=== PATIENT | female | born 1970 | race Caucasian/White ===

== ENCOUNTER 2022-02-15 16:50 | Inpatient (IN) ==
[2022-02-15] MEDS ORDERED: Adenosine 3 MG/ML 2 ml VIAL (6 mg) ONE ×2 (17:15)
[2022-02-15] MEDS ORDERED: Diltiazem IV push/loading dose 5 MG/ML 5 ML vial (25 mg) ONE (17:16)
[2022-02-15 17:22] LABS: ABS Basophils 0.1 10^3/ul (0-0.2); ABS Eosinophils 0.1 10^3/ul (0-0.6); ABS Lymphocytes 2.6 10^3/ul (1.0-4.8); ABS Monocytes 0.7 10^3/ul (0-0.8); ABS Neutrophils 4.8 10^3/ul (1.5-7.7); Eosinophil % 1.8 %; Hematocrit 43 % (35-47); Hemoglobin 14.6 g/dL (12.0-16.0); Lymphocyte % 31.3 %; Mean Corpuscular HGB Conc 34 g/dL (31-36); Mean Corpuscular Hemoglobin 32 pg (27-31); Mean Corpuscular Volume 93 fL (80-97); Mean Platelet Volume 7.6 fL (7.4-10.4); Platelet Count 311 10^3/uL (150-450); Red Blood Count 4.65 10^6 /uL (3.70-4.87); Red Cell Distribution Width 13 % (10-15); White Blood Count 8.2 10^3/uL (3.5-10.8)
[2022-02-15] MEDS ORDERED: Diltiazem (ADVAN VIAL) 100 MG/100 ML ADDV.BAG IV ONE (17:25)
[2022-02-15] MEDS ORDERED: NS 0.9% 1000 ml BAG 1,000 ML IV ONE (17:27)
[2022-02-15] MEDS ORDERED: Diltiazem IV push/loading dose 5 MG/ML 5 ML vial (25 mg) IV SLOW PU ONE ×2 (17:27→17:51)
[2022-02-15 17:28] LABS: INR 1.08 (0.86-1.15)
[2022-02-15 17:45] LABS: High Sens Troponin Baseline 7 pg/mL (<15)
[2022-02-15] MEDS ORDERED: Adenosine 3 MG/ML 2 ml VIAL (6 mg) IV PUSH ONE ×2 (17:49→17:51)
[2022-02-15] MEDS ORDERED: Diltiazem (ADVAN VIAL) 100 MG/100 ML ADDV.BAG IV SCH (18:00)
[2022-02-15] MEDS ORDERED: Diltiazem IV BAG D5W Premix 125 MG/125 ML BAG IV SCH (18:00)
[2022-02-15 18:20] LABS: ALT 22 U/L (7-52); AST 21 U/L (13-39); Albumin 4.8 g/dL (3.2-5.2); Albumin/Globulin Ratio 1.9 (1-3); Alkaline Phosphatase 41 U/L (35-149); Anion Gap 9 mmol/L (2-11); Blood Urea Nitrogen 19 mg/dL (6-24); CO2 Carbon Dioxide 23 mmol/L (22-32); Calcium 9.9 mg/dL (8.6-10.3); Chloride 107 mmol/L (101-111); Globulin 2.5 g/dL (2-4); Glucose 89 mg/dL (70-100); Magnesium 2.1 mg/dL (1.9-2.7); Potassium 3.9 mmol/L (3.5-5.0); Sodium 139 mmol/L (135-145); Total Protein 7.3 g/dL (6.4-8.9)
[2022-02-15 18:26] LABS: HCG Pregnancy < 0.60 mIU/mL
[2022-02-15 18:35] LABS: TSH Ultra Thyroid Stim Horm 3.01 mcIU/mL (0.34-5.60)
[2022-02-15 18:40] LABS: High Sensitivity Troponin 1 Hr 7 pg/mL (<15)
[2022-02-15] MEDS ORDERED: VERAPAMIL 2.5 MG/ML 2 ML VIAL ** 5 mg/2 ml IV PUSH ONE (19:01)
[2022-02-15] MEDS ORDERED: Etomidate 40 mg/20 ml (2 MG/ML) 20 ml VIAL (40 mg) ONE (19:17)
[2022-02-15] MEDS ORDERED: Amiodarone 150 mg IVPREMIX 150 MG/100 ML BAG IV ONE ×2 (19:30→19:31)
[2022-02-15] MEDS ORDERED: Amiodarone 360 MG IVPREMIX 0 MG/0 ML BAG IV ONE (19:43)
[2022-02-15] MEDS: Amiodarone 360 MG IVPREMIX 360 MG/200 ML BAG IV ONE ×2 (19:46→19:58)
[2022-02-15] MEDS ORDERED: Amiodarone 360 MG IVPREMIX 360 MG/200 ML BAG IV ONE ×2 (19:51→19:52)
[2022-02-15] MEDS ORDERED: D5W IV SCH (20:00)
[2022-02-15] MEDS ORDERED: PROCAINAMIDE IV SCH (20:00)
[2022-02-15] MEDS ORDERED: Heparin DRIP 25,000 UNITS BAG 25,000 UNITS/500 ML BAG IV SCH (21:30)
[2022-02-15] MEDS ORDERED: Heparin 5000 UNITS/ML 1 mL VIAL IV SCH (22:00)
[2022-02-15] MEDS ORDERED: Iohexol 350 (CONTRAST) 500 ML MDV IV ONE (22:05)
[2022-02-16] MEDS: Amiodarone 360 MG IVPREMIX 360 MG/200 ML BAG IV ONE (01:19)
[2022-02-16] MEDS ORDERED: Amiodarone 360 MG IVPREMIX 360 MG/200 ML BAG IV SCH (04:45)
[2022-02-16 06:17] LABS: ABS Eosinophils 0.1 10^3/ul (0-0.6); ABS Lymphocytes 1.7 10^3/ul (1.0-4.8); ABS Monocytes 0.5 10^3/ul (0-0.8); ABS Neutrophils 4.1 10^3/ul (1.5-7.7); Eosinophil % 1.5 %; Hematocrit 37 % (35-47); Hemoglobin 12.7 g/dL (12.0-16.0); Lymphocyte % 27.1 %; Mean Corpuscular HGB Conc 34 g/dL (31-36); Mean Corpuscular Hemoglobin 32 pg (27-31); Mean Corpuscular Volume 92 fL (80-97); Mean Platelet Volume 7.6 fL (7.4-10.4); Platelet Count 263 10^3/uL (150-450); Red Blood Count 4.01 10^6 /uL (3.70-4.87); Red Cell Distribution Width 13 % (10-15); White Blood Count 6.4 10^3/uL (3.5-10.8)
[2022-02-16 06:57] LABS: Calcium 8.3 mg/dL (8.6-10.3); Potassium 3.5 mmol/L (3.5-5.0); eGFR CKD-EPI 104.4 (>60)
[2022-02-16] MEDS: KCL 20 MEQ/100 ML IVPREMIX 20 MEQ/100 ML BAG IV SCH ×2 (09:24→12:24)
[2022-02-16] MEDS ORDERED: Enoxaparin 60 MG/0.6 ML SYR SUBCUT SCH (11:00)
[2022-02-16] MEDS: Amiodarone 400 mg TAB PO SCH ×2 (11:11→20:29)
[2022-02-16] MEDS: Enoxaparin 60 MG/0.6 ML SYR SUBCUT SCH (21:07)
[2022-02-17 06:39] LABS: ABS Eosinophils 0.1 10^3/ul (0-0.6); ABS Lymphocytes 1.7 10^3/ul (1.0-4.8); ABS Monocytes 0.4 10^3/ul (0-0.8); ABS Neutrophils 3.4 10^3/ul (1.5-7.7); Eosinophil % 2.1 %; Hematocrit 39 % (35-47); Hemoglobin 13.3 g/dL (12.0-16.0); Lymphocyte % 29.3 %; Mean Corpuscular HGB Conc 34 g/dL (31-36); Mean Corpuscular Hemoglobin 32 pg (27-31); Mean Corpuscular Volume 93 fL (80-97); Mean Platelet Volume 7.6 fL (7.4-10.4); Nucleated Red Blood Cells % 0.1; Platelet Count 256 10^3/uL (150-450); Red Blood Count 4.15 10^6 /uL (3.70-4.87); Red Cell Distribution Width 13 % (10-15); White Blood Count 5.7 10^3/uL (3.5-10.8)
[2022-02-17 07:01] LABS: Calcium 9.2 mg/dL (8.6-10.3); eGFR CKD-EPI 94.2 (>60)
[2022-02-17] MEDS: Enoxaparin 60 MG/0.6 ML SYR SUBCUT SCH (08:37)
[2022-02-17] MEDS: Amiodarone 400 mg TAB PO SCH (08:38)
[2022-02-17 11:37] VITALS: BP 108/53
== END 2022-02-17 13:05 | disposition home or self-care (01) | DRG 201 ==
LOC: ED 16:50 → EDHOLD 20:35 → ICU 22:34 → MEDTELE 02-17 02:52
PROVIDERS: ADMIT Internal Medicine; ATTEND Internal Medicine